=== PATIENT | male | born 1980 | race African-American/Black ===

== ENCOUNTER 2017-01-06 15:47 | Emergency (ER) | payer SELFPAY ==
[~2017-01-06] VITALS: Ht 162.6 cm; Wt 113.6 kg
[~2017-01-06 15:47] MED LIST: NO HOME MEDICATIONS; NORCO 325 MG-51 TAB PO
[2017-01-06 15:49] VITALS: BP 161/99; PULSE 103; TEMP 98.2
== END 2017-01-06 16:58 | disposition home or self-care (01) ==
LOC: COL.ER 15:47
DX: S93.402A Sprain of unspecified ligament of left ankle, initial encounter (principal); W19.XXXA Unspecified fall, initial encounter; Y92.310 Basketball court as the place of occurrence of the external cause

== ENCOUNTER 2017-04-29 02:01 | Inpatient (IN) | payer OTHER ==
[2017-04-29] VITALS (513 sets, daily range): BP systolic 111–152; BP diastolic 64–95; PULSE 77–101; TEMP 96.8–98.9; O2SAT 87–99
[~2017-04-29] VITALS: Ht 165.1 cm; Wt 118.2 kg
[2017-04-29 02:43] LABS: BASO % 0.3 % (0.0-2.0); EOS # 0.2 (0.0-0.7); EOS % 1.9 % (0-4.0); GRAN # 8.5 (1.4-6.5); GRAN % 68.1 % (42.2-75.2); HEMATOCRIT 45.9 % (42.0-52.0); LYMPH % 24.1 % (20.0-51.0); MEAN CELL VOLUME 90 fl (80.0-100.0); MEAN CORPUSCULAR HEMOGLOBIN 38 pg (27.0-31.0); MEAN CORPUSCULAR HGB CONC 43 g/dl (33.0-37.0); MEAN PLATELET VOLUME 11.7 fl (7.4-10.4); MONO # 0.6 (0.1-0.6); MONO % 5.1 % (1.7-9.3); PLATELET COUNT 218 K/mm3 (130-400); RED BLOOD COUNT 5.11 M/mm3 (4.20-5.60); REDCELL DISTRIBUTION WIDTH-CV 11.7 % (11.5-14.5); WHITE BLOOD COUNT 12.4 K/mm3 (4.8-10.8)
[2017-04-29 02:47] LABS: HEMOGLOBIN 19.6 g/dl (13.5-18.0)
[2017-04-29 02:49] LABS: ADJUSTED CALCIUM 9.4 mg/dL (8.4-10.2); ALANINE AMINOTRANSFERASE 30 U/L (21-72); ALBUMIN 3.5 gm/dL (3.5-5.0); ALKALINE PHOSPHATASE 155 U/L (50-136); ANION GAP 19 mmol/L (7-16); BILIRUBIN,TOTAL 0.7 mg/dL (0.0-1.0); BLOOD UREA NITROGEN 13 mg/dL (9-20); CARBON DIOXIDE 18 mmol/L (22-30); CHLORIDE 94 mmol/L (98-107); CREATININE, serum 0.75 mg/dL (0.66-1.25); POTASSIUM 4.4 mmol/L (3.4-5.0); SODIUM 131 mmol/L (137-145); TOTAL PROTEIN 7.8 gm/dL (6.4-8.2)
[2017-04-29 02:50] LABS: GLUCOSE 620 mg/dL (74-106)
[2017-04-29 03:20] LABS: ARTERIAL BLD GAS O2 SATURATION 92.2 % (92-100); ARTERIAL BLOOD GAS BASE EXCESS -0.9 (-2-2); ARTERIAL BLOOD GAS HCO3 23.7 meq/L (22-26); ARTERIAL BLOOD GAS PO2 62.7 mmHg (80-100); OXYHEMOGLOBIN 91.6 %
[2017-04-29 03:21] LABS: ALLEN TEST YES; ALLENS TEST RESULT PASS; ATS? YES
[2017-04-29 03:52] LABS: PH 6 (5-8); SQUAMOUS EPITHELIAL 0-2 /hpf; URINE APPEARANCE Clear; URINE BACTERIA None Seen /hpf; URINE BILIRUBIN Negative (NEGATIVE); URINE BLOOD 1+ (NEGATIVE); URINE COLOR Straw; URINE GLUCOSE 3+ (NEGATIVE); URINE KETONE Trace (NEGATIVE); URINE RBC 0-2 /hpf; URINE UROBILINOGEN Negative (NEGATIVE)
[2017-04-29 03:56] LABS: URINE WBC 0-2 /hpf
[2017-04-29 04:09] LABS: CHOLESTEROL 224 mg/dL (120-200); HDL CHOLESTEROL 22 mg/dL
[2017-04-29 04:36] LABS: TRIGLYCERIDE 2418 mg/dL
[2017-04-29 04:38] LABS: LDL CHOLESTEROL -282 mg/dL; LIPASE 20326 U/L (23-300)
[2017-04-29 05:02] LABS: MAGNESIUM 1.4 mg/dL (1.6-2.3)
[2017-04-29 06:26] LABS: CALCIUM 7.9 mg/dL (8.4-10.2); CREATININE, serum 0.58 mg/dL (0.66-1.25); POTASSIUM 3.8 mmol/L (3.4-5.0)
[2017-04-29 08:09] LABS: CALCIUM 7.5 mg/dL (8.4-10.2); CREATININE, serum 0.52 mg/dL (0.66-1.25); POTASSIUM 3.7 mmol/L (3.4-5.0)
[2017-04-29 10:24] LABS: CALCIUM 7.4 mg/dL (8.4-10.2); CREATININE, serum 0.54 mg/dL (0.66-1.25); POTASSIUM 3.9 mmol/L (3.4-5.0)
[2017-04-29 22:05] LABS: CALCIUM 7.1 mg/dL (8.4-10.2); CREATININE, serum 0.61 mg/dL (0.66-1.25); POTASSIUM 4.9 mmol/L (3.4-5.0)
[2017-04-30] VITALS (8 sets, daily range): BP systolic 120–188; BP diastolic 66–95; PULSE 92–110; TEMP 97.6–99.5
[2017-04-30 10:06] LABS: ADJUSTED CALCIUM 7.6 mg/dL (8.4-10.2); ALBUMIN 3.2 gm/dL (3.5-5.0); CREATININE, serum 0.66 mg/dL (0.66-1.25); MAGNESIUM 1.7 mg/dL (1.6-2.3); POTASSIUM 4.3 mmol/L (3.4-5.0); TOTAL PROTEIN 6.4 gm/dL (6.4-8.2)
[2017-05-01 04:09] VITALS: BP 133/86; PULSE 109; TEMP 98.8
[2017-05-01 07:26] LABS: BASO % 0.4 % (0.0-2.0); EOS # 0.1 (0.0-0.7); EOS % 1.7 % (0-4.0); GRAN # 5.5 (1.4-6.5); GRAN % 72.9 % (42.2-75.2); HEMATOCRIT 45.2 % (42.0-52.0); LYMPH # 1.5 (1.2-3.4); LYMPH % 20.3 % (20.0-51.0); MEAN CELL VOLUME 94 fl (80.0-100.0); MEAN CORPUSCULAR HEMOGLOBIN 31 pg (27.0-31.0); MEAN CORPUSCULAR HGB CONC 33 g/dl (33.0-37.0); MEAN PLATELET VOLUME 12.2 fl (7.4-10.4); MONO # 0.3 (0.1-0.6); MONO % 4.2 % (1.7-9.3); PLATELET COUNT 133 K/mm3 (130-400); WHITE BLOOD COUNT 7.6 K/mm3 (4.8-10.8)
[2017-05-01 07:54] LABS: HEMOGLOBIN 14.8 g/dl (13.5-18.0)
[2017-05-01 07:59] LABS: ADJUSTED CALCIUM 7.7 mg/dL (8.4-10.2); BILIRUBIN,TOTAL 1.3 mg/dL (0.0-1.0); CALCIUM 6.9 mg/dL (8.4-10.2); CREATININE, serum 0.71 mg/dL (0.66-1.25); POTASSIUM 3.7 mmol/L (3.4-5.0); TOTAL PROTEIN 6.6 gm/dL (6.4-8.2)
[2017-05-01 08:50] VITALS: BP 153/74; PULSE 105; PULSE 110; TEMP 98.4
[2017-05-01 11:33] VITALS: BP 129/84; PULSE 110
[2017-05-01 15:25] VITALS: BP 142/72; PULSE 111
[2017-05-01 15:29] VITALS: BP 142/72; PULSE 111; TEMP 98.3
[2017-05-01 19:20] VITALS: BP 131/81; PULSE 112; TEMP 98.2
[2017-05-02] VITALS (8 sets, daily range): BP systolic 128–147; BP diastolic 68–89; PULSE 13–114; TEMP 97.7–99.4
[2017-05-02 10:57] LABS: HEMOGLOBIN 13.3 g/dl (13.5-18.0); MEAN CELL VOLUME 95 fl (80.0-100.0); MEAN CORPUSCULAR HEMOGLOBIN 31 pg (27.0-31.0); MEAN CORPUSCULAR HGB CONC 32 g/dl (33.0-37.0); PLATELET COUNT 147 K/mm3 (130-400); REDCELL DISTRIBUTION WIDTH-CV 13.1 % (11.5-14.5); WHITE BLOOD COUNT 7.5 K/mm3 (4.8-10.8)
[2017-05-02 10:58] LABS: ADD PATHOLOGY DIFF REVIEW NO
[2017-05-02 11:04] LABS: ADJUSTED CALCIUM 8.8 mg/dL (8.4-10.2); ALBUMIN 2.8 gm/dL (3.5-5.0); BILIRUBIN,TOTAL 3.4 mg/dL (0.0-1.0); CALCIUM 7.8 mg/dL (8.4-10.2); CREATININE, serum 0.68 mg/dL (0.66-1.25); POTASSIUM 3.7 mmol/L (3.4-5.0); TOTAL PROTEIN 6.4 gm/dL (6.4-8.2)
[2017-05-02 11:34] LABS: BAND 22 % (0-10); BASOPHIL 1 % (0-2); EOSINOPHIL 6 % (0-4); MYELOCYTE 2 % (0-0); NEUTROPHILS 52 % (42.0-75.2); PLATELET ESTIMATE NORMAL (NORMAL); TOTAL CELLS COUNTED 100
[2017-05-03 04:05] VITALS: BP 150/94; PULSE 103; TEMP 98.7
[2017-05-03 07:51] LABS: ADJUSTED CALCIUM 9.4 mg/dL (8.4-10.2); ALBUMIN 2.8 gm/dL (3.5-5.0); BILIRUBIN,TOTAL 3.8 mg/dL (0.0-1.0); CALCIUM 8.4 mg/dL (8.4-10.2); CREATININE, serum 0.53 mg/dL (0.66-1.25); POTASSIUM 3.7 mmol/L (3.4-5.0); TOTAL PROTEIN 6.4 gm/dL (6.4-8.2)
[2017-05-03 08:04] LABS: ADD PATHOLOGY DIFF REVIEW NO; HEMATOCRIT 39.5 % (42.0-52.0); MEAN CELL VOLUME 93 fl (80.0-100.0); MEAN CORPUSCULAR HEMOGLOBIN 31 pg (27.0-31.0); MEAN CORPUSCULAR HGB CONC 33 g/dl (33.0-37.0); MEAN PLATELET VOLUME 11.1 fl (7.4-10.4); PLATELET COUNT 164 K/mm3 (130-400); RED BLOOD COUNT 4.23 M/mm3 (4.20-5.60); REDCELL DISTRIBUTION WIDTH-CV 12.8 % (11.5-14.5); WHITE BLOOD COUNT 7.4 K/mm3 (4.8-10.8)
[2017-05-03 08:12] LABS: BAND 37 % (0-10); BASOPHIL 1 % (0-2); EOSINOPHIL 1 % (0-4); METAMYELOCYTE 1 % (0-0); NEUTROPHILS 42 % (42.0-75.2); PLATELET ESTIMATE NORMAL (NORMAL); TOTAL CELLS COUNTED 100
[2017-05-03 08:37] VITALS: BP 145/83; PULSE 99; TEMP 98.4
[2017-05-03 10:58] VITALS: BP 175/95; PULSE 105; TEMP 98.4
[2017-05-03 15:56] VITALS: BP 135/92; PULSE 99; TEMP 98.4
[2017-05-03 20:20] VITALS: BP 163/107; PULSE 101; TEMP 98.4
[2017-05-03 23:57] VITALS: BP 139/73; PULSE 105; TEMP 97.5
[2017-05-04 04:26] VITALS: BP 157/98; PULSE 108; TEMP 98.7
[2017-05-04 08:19] VITALS: BP 145/96; PULSE 101; TEMP 98.8
[2017-05-04 10:05] LABS: HEMATOCRIT 38.9 % (42.0-52.0); HEMOGLOBIN 12.8 g/dl (13.5-18.0); MEAN CELL VOLUME 93 fl (80.0-100.0); MEAN CORPUSCULAR HEMOGLOBIN 31 pg (27.0-31.0); MEAN CORPUSCULAR HGB CONC 33 g/dl (33.0-37.0); MEAN PLATELET VOLUME 11.2 fl (7.4-10.4); PLATELET COUNT 191 K/mm3 (130-400); RED BLOOD COUNT 4.19 M/mm3 (4.20-5.60); REDCELL DISTRIBUTION WIDTH-CV 12.3 % (11.5-14.5); WHITE BLOOD COUNT 7.7 K/mm3 (4.8-10.8)
[2017-05-04 10:13] LABS: ADJUSTED CALCIUM 9.5 mg/dL (8.4-10.2); BILIRUBIN,TOTAL 3.1 mg/dL (0.0-1.0); CALCIUM 8.7 mg/dL (8.4-10.2); CREATININE, serum 0.55 mg/dL (0.66-1.25); POTASSIUM 3.1 mmol/L (3.4-5.0); TOTAL PROTEIN 6.6 gm/dL (6.4-8.2)
[2017-05-04 10:45] LABS: ADD PATHOLOGY DIFF REVIEW YES; BAND 37 % (0-10); EOSINOPHIL 2 % (0-4); METAMYELOCYTE 3 % (0-0); MYELOCYTE 2 % (0-0); NEUTROPHILS 35 % (42.0-75.2); PLATELET ESTIMATE NORMAL (NORMAL); TOTAL CELLS COUNTED 100
[2017-05-04] MEDS ORDERED: EPA FISH OIL1 SGL PO (14:31)
[2017-05-04] MEDS ORDERED: LOPID 600M600 MG/TAB PO (14:33)
[2017-05-04] MEDS ORDERED: NOVLOG SQ (14:33)
[2017-05-04] MEDS ORDERED: LEVEMIR100 U/ML SQ (14:33)
[2017-05-04] MEDS ORDERED: NORCO 325 MG-51 TAB PO (14:33)
[2017-05-04] MEDS ORDERED: K-TAB20 PO (15:17)
[2017-05-04] MEDS ORDERED: MAG-OX 400400 MG/TAB PO (15:17)
[2017-05-05 08:15] LABS: PATHOLOGY DIFF REVIEW OK +
== END 2017-05-04 16:19 | disposition home or self-care (01) | DRG 438 ==
LOC: COL.ER 02:01 → ICU 03:19 → MEDICAL 03:19
PROVIDERS: Emergency Medicine; Internal Medicine; Nurse Practitioner Family
DX: K85.90 Acute pancreatitis without necrosis or infection, unspecified (principal); E11.00 Type 2 diabetes mellitus with hyperosmolarity without nonketotic hyperglycemic-hyperosmolar coma (NKHHC); E83.51 Hypocalcemia; E87.6 Hypokalemia; Z87.891 Personal history of nicotine dependence
CPT/HCPCS: 99223-AI; 99232-AI; 99233-AI; 99239; C9113; J1170; J1650; J1815; J2270; J2405; J7030; Q9967

== ENCOUNTER → 2017-05-15 | Outpatient (CLI) | payer OTHER ==
[~2017-05-15] MED LIST changes: +EPA FISH OIL1 SGL PO; +K-TAB20 PO; +LEVEMIR100 U/ML SQ; +LOPID 600M600 MG/TAB PO; +MAG-OX 400400 MG/TAB PO; +NOVLOG SQ
== END ==
LOC: SUN.DIA 09:35
DX: E11.9 Type 2 diabetes mellitus without complications (principal); E78.5 Hyperlipidemia, unspecified; E66.9 Obesity, unspecified; Z68.36 Body mass index [BMI] 36.0-36.9, adult; Z71.3 Dietary counseling and surveillance; Z87.891 Personal history of nicotine dependence
CPT/HCPCS: G0108

== ENCOUNTER → 2017-05-15 | Outpatient (CLI) | payer SELFPAY | LOC: SUN.DIA 10:49 | DX: Z01.89 Encounter for other specified special examinations (principal) ==

== ENCOUNTER → 2017-05-16 | Outpatient (CLI) | payer SELFPAY | LOC: SUN.DIA 11:17 | DX: E11.9 Type 2 diabetes mellitus without complications (principal); Z79.4 Long term (current) use of insulin; E78.5 Hyperlipidemia, unspecified; E66.9 Obesity, unspecified; Z68.38 Body mass index [BMI] 38.0-38.9, adult; Z71.3 Dietary counseling and surveillance; Z87.891 Personal history of nicotine dependence ==

== ENCOUNTER → 2017-05-16 | Outpatient (CLI) | payer SELFPAY | LOC: SUN.DIA 10:59 | DX: E11.9 Type 2 diabetes mellitus without complications (principal); Z79.4 Long term (current) use of insulin; E78.5 Hyperlipidemia, unspecified; E66.9 Obesity, unspecified; Z68.38 Body mass index [BMI] 38.0-38.9, adult; Z71.3 Dietary counseling and surveillance; Z87.891 Personal history of nicotine dependence ==

== ENCOUNTER → 2017-05-16 | Outpatient (CLI) | payer OTHER | LOC: SUN.DIA 11:19 | DX: E11.9 Type 2 diabetes mellitus without complications (principal); Z79.4 Long term (current) use of insulin; E78.5 Hyperlipidemia, unspecified; E66.9 Obesity, unspecified; Z68.38 Body mass index [BMI] 38.0-38.9, adult; Z71.3 Dietary counseling and surveillance; Z87.891 Personal history of nicotine dependence | CPT/HCPCS: G0108 ==

== ENCOUNTER → 2017-06-13 | Outpatient (CLI) | payer OTHER | LOC: SUN.DIA 11:43 | DX: E11.9 Type 2 diabetes mellitus without complications (principal); Z79.4 Long term (current) use of insulin; E78.5 Hyperlipidemia, unspecified; E66.9 Obesity, unspecified; Z68.37 Body mass index [BMI] 37.0-37.9, adult; Z71.3 Dietary counseling and surveillance; Z87.891 Personal history of nicotine dependence | CPT/HCPCS: G0108 ==

== ENCOUNTER → 2017-09-12 | Outpatient (CLI) | payer SELFPAY | LOC: SUN.DIA 11:17 | DX: E11.9 Type 2 diabetes mellitus without complications (principal); Z79.4 Long term (current) use of insulin; E78.5 Hyperlipidemia, unspecified; E66.9 Obesity, unspecified; Z68.37 Body mass index [BMI] 37.0-37.9, adult; Z71.3 Dietary counseling and surveillance; Z87.891 Personal history of nicotine dependence | CPT/HCPCS: G0108 ==

== ENCOUNTER 2018-01-03 15:15 | Emergency (ER) | payer SELFPAY ==
[~2018-01-03] VITALS: Ht 167.6 cm; Wt 106.8 kg
[2018-01-03 15:17] VITALS: BP 142/88; PULSE 85; TEMP 97.8
[2018-01-03] MEDS ORDERED: CEPHALEXIN500 M1 PO (15:37)
== END 2018-01-03 15:46 | disposition home or self-care (01) ==
LOC: COL.ER 15:15
DX: L60.0 Ingrowing nail (principal); L03.032 Cellulitis of left toe; E11.9 Type 2 diabetes mellitus without complications; Z79.4 Long term (current) use of insulin

== ENCOUNTER 2018-09-28 13:11 | Emergency (ER) | payer SELFPAY ==
[~2018-09-28] VITALS: Ht 165.1 cm; Wt 111.4 kg
[~2018-09-28 13:11] MED LIST changes: +CEPHALEXIN500 M1 PO
[2018-09-28 13:25] VITALS: TEMP 96.8
[2018-09-28 15:31] LABS: BASO % 0.4 % (0.0-2.0); EOS # 0.4 (0.0-0.7); EOS % 3.2 % (0-4.0); GRAN # 7.1 (1.4-6.5); GRAN % 65.2 % (42.2-75.2); HEMATOCRIT 46.3 % (42.0-52.0); HEMOGLOBIN 15.3 g/dl (13.5-18.0); LYMPH # 2.8 (1.2-3.4); LYMPH % 25.4 % (20.0-51.0); MEAN CELL VOLUME 92 fl (80.0-100.0); MEAN CORPUSCULAR HEMOGLOBIN 31 pg (27.0-31.0); MEAN CORPUSCULAR HGB CONC 33 g/dl (33.0-37.0); MEAN PLATELET VOLUME 10.6 fl (7.4-10.4); MONO # 0.6 (0.1-0.6); MONO % 5.5 % (1.7-9.3); PLATELET COUNT 234 K/mm3 (130-400); RED BLOOD COUNT 5.02 M/mm3 (4.20-5.60); REDCELL DISTRIBUTION WIDTH-CV 11.3 % (11.5-14.5)
[2018-09-28 15:45] LABS: C-REACTIVE PROTEIN 3.8 mg/dL (0.0-0.9); URIC ACID 6.9 mg/dL (3.5-8.5)
[2018-09-28 15:56] LABS: ERYTHROCYTE SEDIMENTATION RATE 50 mm/hr (0-15)
[2018-09-28 16:05] LABS: CALCIUM 9.7 mg/dL (8.4-10.2); CREATININE, serum 0.93 mg/dL (0.66-1.25); POTASSIUM 4.6 mmol/L (3.4-5.0)
[2018-09-28] MEDS ORDERED: IBU800 M1 PO (16:25)
[2018-09-28 16:58] VITALS: BP 120/74; PULSE 86
== END 2018-09-28 16:59 | disposition home or self-care (01) ==
LOC: COL.ER 13:11
PROVIDERS: Physician Assistant
DX: M25.571 Pain in right ankle and joints of right foot (principal); E11.9 Type 2 diabetes mellitus without complications; Z91.14 Patient's other noncompliance with medication regimen

== ENCOUNTER 2018-12-06 22:39 | Emergency (ER) | payer OTHER ==
[~2018-12-06] VITALS: Ht 165.1 cm; Wt 105.0 kg
[~2018-12-06 22:39] MED LIST changes: +IBU800 M1 PO
[2018-12-06 23:11] VITALS: TEMP 97.7
[2018-12-06 23:49] LABS: BASO % 0.3 % (0.0-2.0); EOS # 0.2 (0.0-0.7); EOS % 1.9 % (0-4.0); GRAN # 8.3 (1.4-6.5); HEMATOCRIT 47.5 % (42.0-52.0); HEMOGLOBIN 15.7 g/dl (13.5-18.0); LYMPH # 3.2 (1.2-3.4); LYMPH % 25.5 % (20.0-51.0); MEAN CELL VOLUME 88 fl (80.0-100.0); MEAN CORPUSCULAR HEMOGLOBIN 29 pg (27.0-31.0); MEAN CORPUSCULAR HGB CONC 33 g/dl (33.0-37.0); MEAN PLATELET VOLUME 11.9 fl (7.4-10.4); MONO # 0.6 (0.1-0.6); MONO % 5.1 % (1.7-9.3); PLATELET COUNT 186 K/mm3 (130-400); REDCELL DISTRIBUTION WIDTH-CV 11.5 % (11.5-14.5)
[2018-12-06 23:59] LABS: COLLECTION METHOD CLEAN CATCH
[2018-12-07 00:03] LABS: ALBUMIN 4.4 gm/dL (3.5-5.0); BILIRUBIN,TOTAL 0.5 mg/dL (0.0-1.0); CALCIUM 9.4 mg/dL (8.4-10.2); CREATININE, serum 0.94 (0.66-1.25); TOTAL PROTEIN 8.3 gm/dL (6.4-8.2)
[2018-12-07 00:07] LABS: PH 5 (5-8); SQUAMOUS EPITHELIAL 0-2 /hpf; URINE APPEARANCE Clear; URINE BACTERIA None Seen /hpf; URINE BILIRUBIN Negative (NEGATIVE); URINE BLOOD Negative (NEGATIVE); URINE COLOR Straw; URINE GLUCOSE 3+ (NEGATIVE); URINE KETONE Negative (NEGATIVE); URINE LEUKOCYTE ESTERASE Negative (NEGATIVE); URINE NITRATE Negative (NEGATIVE); URINE PROTEIN(semi-quant) 1+ (NEGATIVE); URINE RBC 0-2 /hpf; URINE UROBILINOGEN Negative (NEGATIVE)
[2018-12-07] MEDS ORDERED: GLUCOPHAGE500 MG/TAB PO (03:33)
[2018-12-07] MEDS ORDERED: CIPRO 500MG TA500 MG PO (03:33)
[2018-12-07] MEDS ORDERED: LOMOTIL 0.025 M1 TAB PO (03:39)
[2018-12-07] MEDS ORDERED: FLAGYL500 MG PO (03:39)
[2018-12-07 03:59] VITALS: BP 139/84; PULSE 81
== END 2018-12-07 03:59 | disposition home or self-care (01) ==
LOC: COL.ER 22:39
PROVIDERS: Emergency Medicine
DX: N39.0 Urinary tract infection, site not specified (principal); K85.90 Acute pancreatitis without necrosis or infection, unspecified; E11.65 Type 2 diabetes mellitus with hyperglycemia; I10 Essential (primary) hypertension; Z91.14 Patient's other noncompliance with medication regimen
CPT/HCPCS: A4216; J0696; J1815; J2405; J3010; J7030; Q9967